=== PATIENT | female | born 1980 | race Caucasian/White ===

== ENCOUNTER 2020-11-14 14:25 | Inpatient (IN) | payer MEDICARE, MEDICAID, SELFPAY ==
--- NOTE | 2020-11-14 14:27 | W.ED.PSYCH ---
HPI - Psych General: Chief Complaint: Psychiatric Symptoms Stated Complaint: psych Time Seen by Provider: 11/14/20 14:26 History of Present Illness: HPI Narrative: 7-year-old female brought in by [facility] department on a 96-hour hold. Generally she been behaving bizarrely making suicidal comments she was brought in via [facility] department. She was cordial with a deputy until they arrive to the parking lot of the hospital and she became verbally and physically aggressive to the point where security system installer had to go out and help the deputy as well as several other staff members ultimately required use of a hard restraint bed to get her safely into the building. Even in the heart restraint bed she was extremely combative attempting to bite kick and spit at others the mask was placed physical holds were briefly used to vent the patient from harming herself or others. She attempted to head but a nurse who is getting initial vitals. MD complaint: suicidal ideation and altered mental status Duration: constant and getting worse Relieving factors: none Exacerbating factors: none Context: recent drug abuse Associated psychiatric symptoms: depression, suicidal ideation and homicidal ideation Associated symptoms: Reports homicidal ideation and suicidal ideation Treatments prior to arrival: placed on mental health hold, physical restraints and chemical restraints If self harm: admits thoughts of self harm Review of Systems General: Reports: ROS unobtainable due to mental status Psych: Reports: suicidal ideation and homicidal ideation Physical Exam HENMT: COMMON NORMALS: normocephalic, atraumatic, hearing grossly normal bilaterally and external ears normal HEAD & SCALP: normocephalic and atraumatic EXTERNAL EAR: Yes external ears normal Neck/C-Spine: COMMON NORMALS: no JVD Resp: COMMON NORMALS: normal respiratory effort, No retractions, No use of accessory muscles and clear to auscultation bilaterally AUSCULTATION: clear to auscultation bilaterally Cardio: COMMON NORMALS: no JVD, regular rate, regular rhythm and No murmurs present (Cardio) RATE: regular rate RHYTHM: regular rhythm GI: COMMON NORMALS: Soft to palpation and No hepatosplenomegaly present AUSCULTATION: Yes normoactive bowel sounds PALPATION: Yes Soft to palpation, No Tenderness to palpation present (GI), No Guarding due to palpation present (GI) and Yes No hepatosplenomegaly present Extremity: COMMON NORMALS: normal to inspection, capillary refill normal, no clubbing, cyanosis or edema, no calf tenderness and no pedal edema Skin: COMMON NORMALS: no rashes or lesions noted GENERAL SKIN EXAM: no rashes or lesions noted Course Vital Signs: Vital signs: Vital Signs Temperature 97.2 F L 11/14/20 14:36 Pulse Rate 118 H 11/14/20 14:36 Respiratory Rate 26 H 11/14/20 14:36 Blood Pressure 102/72 11/14/20 14:36 Pulse Oximetry 100 11/14/20 14:36 MDM - Psych MDM Narrative: Medical decision making narrative: 96-hour hold I filled out affidavit as well as with the office her head. She is acutely intoxicated however she was very aggressive even at a level of 261 before the sedation. After the Geodon and Haldol she is much more sedate. Discussed with Gonzalez will admit to psych for under 96-hour hold for suicidal ideation. Lab Data: Labs: Lab Results 11/14/20 11/14/20 11/14/20 Range/Units 14:58 14:58 14:58 WBC 14.3 H (4.0-10.0) 10^3/ uL RBC 4.61 (4.1-5.3) 10^6/u L Hgb 13.6 (11.5-15.3) g/dL Hct 41.9 (37.0-47.0) % MCV 90.9 (81-99) fL MCH 29.5 (28.0-34.0) pg MCHC 32.5 (30.0-36.0) g/dL RDW 13.1 (12.1-15.1) % Plt Count 317 (130-400) 10^3/c mm MPV 10.7 H (7.4-10.4) fL Neut % (Auto) 60.0 % Lymph % (Auto) 33.2 % [place] % (Auto) 4.9 % Eos % (Auto) 1.1 % Baso % (Auto) 0.4 % Neut # (Auto) 8.56 H (1.8-7.7) 10^3/u L Lymph # (Auto) 4.7 (0.8-4.8) 10^3/u L [place] # (Auto) 0.7 (0.2-0.9) 10^3/u L Eos # (Auto) 0.2 (0.0-0.8) 10^3/u L Baso # (Auto) 0.1 (0.0-0.1) 10^3/u L Nucleated RBC % (a uto) 0 % Nucleated RBCs # 0.0 /100WBC Sodium 145 (136-145) mmol/L Potassium 3.7 (3.5-5.1) mmol/L Chloride 108 H (98-107) mmol/L Carbon Dioxide 20 L (22-29) mmol/L Anion Gap 20.7 H (5-19) BUN 7 (6-20) mg/dL Creatinine 0.7 (0.5-0.9) mg/dL GFR Calculation 92.7 (90-130) mL/min Glucose 84 (65-115) mg/dL Calculated Osmolal ity 297 H (285-295) mOsm/k g Calcium 9.0 (8.5-10.5) mg/dL Total Bilirubin 0.2 (0.15-1.2) mg/dL AST 15 (0-32) U/L ALT 14 (0-33) U/L Alkaline Phosphata se 65 (35-105) IU/L Total Protein 7.5 (6.6-8.7) g/dL Albumin 4.4 (3.5-5.2) g/dL Globulin 3.1 (1.3-4.6) g/dL HCG, Qual Negative (Negative) Urine Color (Yellow) Urine Appearance (CLEAR) Urine pH (5-7) Ur Specific Gravit y (1.005-1.030) Urine Protein (Negative) Urine Glucose (UA) (Normal) Urine Ketones (Negative) Urine Blood (Negative) Urine Nitrate (Negative) Urine Bilirubin (Negative) Urine Urobilinogen (Negative) mg/dL Ur Leukocyte Cadence ase (Negative) Salicylates < 0.3 L (3-10) mg/dL Urine Opiates Scre en (Negative) ng/mL Acetaminophen < 5.0 L (10-30) ug/mL Ur Barbiturates Sc reen (Negative) ng/mL Ur Phencyclidine S crn (Negative) ng/mL Ur Amphetamines Sc reen (Negative) ng/mL U Benzodiazepines Scrn (Negative) ng/mL Urine Cocaine Scre en (Negative) ng/mL U Marijuana (THC) Screen (Negative) ng/mL Ethyl Alcohol 261 H (0-10) mg/dL 11/14/20 11/14/20 Range/Units 14:58 14:58 WBC (4.0-10.0) 10^3/ uL RBC (4.1-5.3) 10^6/u L Hgb (11.5-15.3) g/dL Hct (37.0-47.0) % MCV (81-99) fL MCH (28.0-34.0) pg MCHC (30.0-36.0) g/dL RDW (12.1-15.1) % Plt Count (130-400) 10^3/c mm MPV (7.4-10.4) fL Neut % (Auto) % Lymph % (Auto) % [place] % (Auto) % Eos % (Auto) % Baso % (Auto) % Neut # (Auto) (1.8-7.7) 10^3/u L Lymph # (Auto) (0.8-4.8) 10^3/u L [place] # (Auto) (0.2-0.9) 10^3/u L Eos # (Auto) (0.0-0.8) 10^3/u L Baso # (Auto) (0.0-0.1) 10^3/u L Nucleated RBC % (a uto) % Nucleated RBCs # /100WBC Sodium (136-145) mmol/L Potassium (3.5-5.1) mmol/L Chloride (98-107) mmol/L Carbon Dioxide (22-29) mmol/L Anion Gap (5-19) BUN (6-20) mg/dL Creatinine (0.5-0.9) mg/dL GFR Calculation (90-130) mL/min Glucose (65-115) mg/dL Calculated Osmolal ity (285-295) mOsm/k g Calcium (8.5-10.5) mg/dL Total Bilirubin (0.15-1.2) mg/dL AST (0-32) U/L ALT (0-33) U/L Alkaline Phosphata se (35-105) IU/L Total Protein (6.6-8.7) g/dL Albumin (3.5-5.2) g/dL Globulin (1.3-4.6) g/dL HCG, Qual (Negative) Urine Color Colorless (Yellow) Urine Appearance Clear (CLEAR) Urine pH 6 (5-7) Ur Specific Gravit y 1.005 (1.005-1.030) Urine Protein Neg (Negative) Urine Glucose (UA) Norm (Normal) Urine Ketones Negative (Negative) Urine Blood Neg (Negative) Urine Nitrate Negative (Negative) Urine Bilirubin Neg (Negative) Urine Urobilinogen Norm (Negative) mg/dL Ur Leukocyte Cadence ase Negative (Negative) Salicylates (3-10) mg/dL Urine Opiates Scre en Negative (Negative) ng/mL Acetaminophen (10-30) ug/mL Ur Barbiturates Sc reen Negative (Negative) ng/mL Ur Phencyclidine S crn Negative (Negative) ng/mL Ur Amphetamines Sc reen Negative (Negative) ng/mL U Benzodiazepines Scrn Negative (Negative) ng/mL Urine Cocaine Scre en Negative (Negative) ng/mL U Marijuana (THC) Screen Positive H (Negative) ng/mL Ethyl Alcohol (0-10) mg/dL Discharge Plan Discharge Patient Disposition: Admitted As Inpatient Clinical Impression: Suicidal ideation, Acute alcohol intoxication Condition: Stable Coding Level of Care Code ED Cleaning Laborer for Rigoberto Fwd Exam Detailed
[2020-11-14] MEDS: LORazepam 2 mg/mL INJ 1 mL IM ×2 (14:35→15:05)
[2020-11-14 14:36] VITALS: BP 102/72; PULSE 118; RESP 26; TEMP 36.2; O2SAT 100
[2020-11-14] MEDS: ziprasidone 20 mg/mL SDV IM (14:36)
[2020-11-14 15:02] LABS: Add Urine Microscopic? NO; Charge for UA Resulting for Rev
[2020-11-14 15:04] LABS: Basophils # 0.1 10^3/uL (0.0-0.1); Basophils % 0.4 %; Eosinophils # 0.2 10^3/uL (0.0-0.8); Eosinophils % 1.1 %; Hematocrit 41.9 % (37.0-47.0); Hemoglobin 13.6 g/dL (11.5-15.3); Lymphocytes # 4.7 10^3/uL (0.8-4.8); Lymphocytes % 33.2 %; Mean Corpuscular HGB Conc 32.5 g/dL (30.0-36.0); Mean Corpuscular Hemoglobin 29.5 pg (28.0-34.0); Mean Corpuscular Volume 90.9 fL (81-99); Mean Platelet Volume 10.7 fL (7.4-10.4); Monocytes # 0.7 10^3/uL (0.2-0.9); Monocytes % 4.9 %; Neutrophils # 8.56 10^3/uL (1.8-7.7); Nucleated Red Blood Cells % 0 %; Platelet Count 317 10^3/cmm (130-400); Red Blood Count 4.61 10^6/uL (4.1-5.3); Red Cell Distribution Width 13.1 % (12.1-15.1); White Blood Count 14.3 10^3/uL (4.0-10.0)
[2020-11-14 15:05] LABS: Bilirubin Urine Neg (Negative); Blood Urine Neg (Negative); Glucose Urine UA Norm (Normal); Ketones Urine Negative (Negative); Leukocyte Esterase Urine Negative (Negative); Nitrate Urine Negative (Negative); Protein Urine Neg (Negative); Specific Gravity, Urine 1.005 (1.005-1.030); Urine Appearance Clear (CLEAR); Urine Color Colorless (Yellow); Urobilinogen Urine Norm (Negative); pH Urine 6 (5-7)
[2020-11-14 15:14] LABS: Amphetamines Screen Urine Negative (Negative); Barbiturates Screen Urine Negative (Negative); Benzodiazepines Screen Urine Negative (Negative); Cocaine Screen Urine Negative (Negative); Opiate Screen Urine Negative (Negative); PCP Screen Urine Negative (Negative); THC Screen Urine Positive (Negative)
[2020-11-14 15:15] LABS: HCG, Serum Qual Negative (Negative)
[2020-11-14 15:22] LABS: Alanine Aminotransferase 14 U/L (0-33); Albumin Level 4.4 g/dL (3.5-5.2); Alcohol Level 261 mg/dL (0-10); Alkaline Phosphatase 65 IU/L (35-105); Anion Gap 20.7 (5-19); Aspartate Amino Transferase 15 U/L (0-32); Blood Urea Nitrogen 7 mg/dL (6-20); Carbon Dioxide 20 mmol/L (22-29); Chloride 108 mmol/L (98-107); Globulin 3.1 g/dL (1.3-4.6); Glomerular Filtration Rate 92.7 mL/min (90-130); Glucose 84 mg/dL (65-115); Osmolality Calculated 297 mOsm/kg (285-295); Potassium 3.7 mmol/L (3.5-5.1); Sodium 145 mmol/L (136-145); Total Bilirubin 0.2 mg/dL (0.15-1.2); Total Protein 7.5 g/dL (6.6-8.7)
[2020-11-14 15:28] LABS: Acetaminophen < 5.0 ug/mL (10-30); Salicylate < 0.3 mg/dL (3-10)
[2020-11-14] MEDS: sodium chloride 0.9% 1,000 ML 999 ML IV (16:47)
--- NOTE | 2020-11-14 16:47 | PC.NURSE ---
upon arrival pt was screaming while rolling down the cho to her room Fuck all of you, I will kill you all. You just wait, I will kill all of you motherfuckers! pt continued to scream threats and profanities. she stated I will kill everyone in here! while attempting to remove pt's clothing for pt safety, pt was attempting to spit on staff and head butt staff as well. mask was placed on pt to prevent her from spitting. pt was trying to remove mask with knee, nurse moved mask back onto pt's face and pt screamed I will bite your other arm off you fucking bitch! pt continued to be violent, make homicidal threats, and make statements that we should just let her kill herself. pt was medicated for safety of self and staff.
[2020-11-14 17:34] VITALS: RESP 18; TEMP 36.3
--- NOTE | 2020-11-14 18:21 | PC.NURSE ---
REFUSED VITALS PATIENT REFUSED TO LET THIS SALES OPERATIONS SPECIALIST TAKE BLOOD PRESSURE, TEMP AND OXYGEN LEVELS AT THIS TIME. RESPIRATIONS AND TEMP WAS DONE. WILL CONTINUE TO MONITOR
[2020-11-14 18:29] LABS: SARS Covid-2 Antigen Negative (Negative)
[2020-11-14 20:57] VITALS: RESP 18
[2020-11-15 06:00] VITALS: BP 99/58; PULSE 96; RESP 19; TEMP 36.4; O2SAT 96; BMI 21.6
--- NOTE | 2020-11-15 06:18 | PC.NURSE ---
Approached the patient to complete admission assessment. She refused to talk to me at this time.
--- NOTE | 2020-11-15 10:26 | PM.NHP ---
Providers/Chief Complaint Admitting Physician: Angelita Gonzalez DO Chief Complaint: psych HPI NPU History of Present Illness Kemi Lewis is a 40 year old female with reportedly a longstanding history with psychiatry but patient does not provide any details stating that she does not know how long ago it was since the last time she spoke with a psychiatrist but it is been many years with multiple past psychiatric hospitalizations. Per report, patient had been drinking and was making suicidal statements after an argument with her . Patient was placed on a 96-hour hold and brought to the hospital at which time the patient became combative and required as needed medication. Patient is extremely irritable this morning and not cooperative with interview and not participating in psychiatric review of systems or providing history. Review of Systems General: Reports: ROS unobtainable due to mental status Meds NPU Home Medications Medication Instructions Recorded Confirmed Last Taken Type Unable to Assess 11/14/20 11/14/20 Unknown History Allergies Allergy/AdvReac Type Severity Reaction Status Date / Time No Known Allergies Allergy Verified 11/14/20 19:16 [facility] NPU Other Psychiatric History: Other Psychiatric History: Unable to obtain at this time Mental Status Exam MSE Comments: Patient is unkempt, appears older than stated age, wearing hospital scrubs, lying in bed, poor rapport, cursing, poor eye contact Psychomotor activity is somewhat increased, some verbal agitation Speech is normal volume, normal rate, spontaneous, fair articulation, not pressured I am pissed off, congruent affect, irritable, labile Alert and oriented to person, place, time, situation Memory and concentration appear to be fair per interview Intellectual functioning appears to be average at best based on vocabulary, interview Thought process, linear but brief, no flight of ideas, no looseness of associations Thought content, no stated delusions, does not appear to be attending to any internal stimuli, unable to fully assess suicidality or homicidality at this time secondary to patient's lack of participation in interview Insight and judgment appear to be poor Vitals/I&O/Wt Last Vital Signs Temp 97.5 F L 11/15/20 06:00 Pulse 96 11/15/20 06:00 Resp 19 H 11/15/20 06:00 BP 99/58 11/15/20 06:00 Pulse Ox 96 11/15/20 06:00 11/14/20 11/15/20 11/15/20 22:59 06:59 14:59 Intake Total 1000 / 1000 Balance 1000 / 1000 Weight last 48 hrs Weight 58.967 kg Weight 58.967 kg Data NPU : 11/14/20 14:58 11/14/20 14:58 A&P Assessment and plan (1) Suicidal ideation: Status: Acute (2) Acute alcohol intoxication: Status: Acute Additional A&P Information Patient is extremely irritable, angry, not participating in interview, does not communicate her understanding of the circumstances leading to her hospitalization to the concerns about her behaviors or statements leading to her hospitalization or the need for evaluation. Patient will not participate in evaluation at this time for disposition. INVOLUNTARY ADMIT to inpatient psychiatry [facility] protocol, monitor for alcohol withdrawal symptoms Coordinate with social services specialist for post discharge substance counseling/treatment Involuntary Hold Information 96 Hour Hold: 96 Hour Involuntary Admission: Yes 96 Hour Hold Ending Date: 11/20/20 96 Hour Hold Ending Time: 00:01 Attestations NPU Medical Necessity Statement*: Psychiatric hospitalization is indicated for recent suicidal ideation and observation for any persisting suicidal ideation or behaviors as well as coordination for safe discharge Anticipate hospital stay to exceed 2 midnights Time Spent in Patient Care: Greater than 35 minutes (>than 50% of time spent in counselling and/or direct pt care on unit). Coding Level of Care Code Acute Before And After School Daycare Worker for Rigoberto Rodriguez Diagnoses Suicidal ideation R45.851 Acute alcohol intoxication F10.929
[2020-11-15 14:00] VITALS: BP 107/67; PULSE 84; RESP 18; TEMP 36.4; O2SAT 97
[2020-11-15] MEDS: haloperidol 5 mg Tablet PO (17:52)
[2020-11-15] MEDS: hyDROXYzine 25 mg Capsule 50 MG PO (19:10)
[2020-11-15] MEDS: trazodone 50 mg Tablet PO (19:10)
[2020-11-15 20:11] VITALS: BP 97/66; PULSE 82; RESP 18; TEMP 36.4; O2SAT 98
--- NOTE | 2020-11-16 02:14 | PC.NURSE ---
Late entry 11/15/20 @1752 Patient was becoming increasing anxious and agitated. She was on the phone with her and became upset because she wants to go home. After several attempts to verbally de-escalate patient, administered Haldol 5 mg PO. Will monitor for medication effectiveness.
[2020-11-16 06:00] VITALS: BP 105/66; PULSE 74; RESP 15; TEMP 36.6; O2SAT 96
--- NOTE | 2020-11-16 11:55 | P.DS_ITS ---
Diagnoses at Discharge Discharge Diagnosis (1) Suicidal ideation: Status: Acute (2) Acute alcohol intoxication: Status: Acute Reason for Visit Reason for Visit: psych Hospital Course Hospital Course 40-year-old female with remote history of psychiatric treatment stating that she had not been seen by psychiatrist for likely over 10 years and reports frequent episodes of care during her teenage years with only suicide attempt occurring around age 17 by overdose in the context of multiple stressors and involuntary hold after making suicidal statements while intoxicated with alcohol. Per report, patient was initially cooperative with law enforcement but when she arrived at the hospital realizing that she would be involuntarily admitted she became combative and was trying to bite staff requiring as needed medication. Patient was irritable and uncooperative at the time of initial evaluation was continuing to clear alcohol from his system but became much more cooperative with staff by the next afternoon and agreeable to evaluation. Patient states that she drinks on a couple of occasions a week stating that she typically has a few drinks but had drank more than usual after an argument with her and while intoxicated was wanting to leave the house when she had called her mother which prompted law enforcement being called leading to the hospitalization. Patient was not suicidal throughout her hospital stay and did not endorse or demonstrate any psychiatric symptoms. Discussed with patient concerns about use of alcohol or any substances and the potential for behavioral disturbances as well as potential for harm to herself and others which the patient communicated her understanding. Patient also communicated her agreement to seek post discharge counseling/therapy targeting more adaptive coping strategies. Patient was not suicidal and not endorsing any psychiatric symptoms at the time of disc harge and did not appear to pose an imminent threat of harm to self or others. Low to moderate risk of harm to self given no current suicidal ideation and no current psychiatric symptoms although patient may have elevated risk if she continues to abuse alcohol leading to intoxication with possible unexpected, impulsive behavior. Risk mitigation included psychiatric hospitalization for observation for any persisting suicidal ideation or behaviors, medical management of withdrawal, recommendation to abstain from the use of substances and alcohol as well as the need for post discharge substance counseling/treatment. Patient was able to communicate her understanding of the need to abstain from the use of alcohol and substances as well as the need for compliance with post discharge substance counseling/treatment in order to further mitigate her risk of harm to self and others. Involuntary Hold Information 96 Hour Hold: 96 Hour Involuntary Admission: Yes 96 Hour Hold Ending Date: 11/20/20 96 Hour Hold Ending Time: 00:01 Mental Status Exam MSE Comments: Calm, cooperative, polite, apologetic, appropriately groomed and dressed in hospital scrubs, good rapport, good eye contact Psychomotor activity is neither increased nor decreased, no agitation Speech is normal volume, normal rate, spontaneous, fair articulation, not pressured I am sorry, I feel much better, congruent affect, not labile Alert and oriented to person, place, time, situation Memory and concentration appear to be intact per interview Thought process, linear, no flight of ideas, no looseness of associations Thought content, no stated delusions, no hallucinations, no suicidal or homicidal ideation Insight and judgment appear to be fair to intact Discharge Data Vitals: Last Vital Signs Temp 97.9 F 11/16/20 06:00 Pulse 74 11/16/20 06:00 Resp 15 11/16/20 06:00 BP 105/66 11/16/20 06:00 Pulse Ox 96 11/16/20 06:00 Discharge Plan Discharge Patient Disposition: Home Condition: Stable Prescriptions: No Action Unable to Assess RF: 0 Discharge Orders: Discharge Order (Routine); Ordered 11/16/20 Ordered By: Angelita Gonzalez Discharge Diet: Regular Discharge Activity: Resume usual activity Patient Instructions: Opioid Safety Discharge Attestations NPU Time Spent in Discharge Care*: greater than 30 min Status at Discharge: Cognitive status at discharge: cognitively intact , Behavioral status at discharge: cooperative , Functional status at discharge: independent ambulation Overall status at discharge: patient is back to baseline Coding Level of Care Code Acute Chg FW DC note Diagnoses Suicidal ideation R45.851 Acute alcohol intoxication F10.920
[2020-11-16 12:06] VITALS: BP 105/66; PULSE 74; RESP 15; TEMP 36.6; O2SAT 96
== END 2020-11-16 13:45 | disposition home or self-care (01) | DRG 897 ==
LOC: ER 16:03 → NP 16:25
PROVIDERS: Admitting Provider Psychiatry & Neurology Psychiatry; Emergency Provider Family Medicine; Visit Provider Psychiatry & Neurology Psychiatry
DX: F10.129 Alcohol abuse with intoxication, unspecified (principal); R45.851 Suicidal ideations; Y90.8 Blood alcohol level of 240 mg/100 ml or more; Z78.1 Physical restraint status; Z91.5 Personal history of self-harm; Z63.0 Problems in relationship with spouse or partner
CPT/HCPCS: 80053; 80306; 80307; 81003; 84703; 85025; 87426; 96372; 99285; J2060; J3486; J7030